=== PATIENT | male | born 1960 ===

== ENCOUNTER 2021-02-13 05:20 | Day surgery (SDC) | payer OTHER ==
[~2021-02-13 05:20] MED LIST: DAILY MULTIPLE1 EAC2 PO
[2021-02-13] MEDS ORDERED: PERCOCET 5-3251 EACH PO (13:46)
[2021-02-13] MEDS ORDERED: COLACE100 MG PO ×2 (13:46→14:38)
[2021-02-13] MEDS ORDERED: NEURONTIN300 MG PO (14:38)
[2021-02-13] MEDS ORDERED: ACETAMINOPHEN500 M2 PO (14:38)
== END 2021-02-13 22:25 | disposition home or self-care (01) ==
LOC: CIR.AMB 05:20
PROVIDERS: ATTEND Surgery
DX: K60.3 Anal fistula (principal)